=== PATIENT | female | born 1960 | race Caucasian/White ===

== ENCOUNTER 2016-10-03 05:56 | Emergency (ER) | payer BC ==
[~2016-10-03] VITALS: Ht 157.5 cm; Wt 91.0 kg
[~2016-10-03 05:56] MED LIST: ALBU18002 INH; ATV5 PO; BUPRTAB51 PO; CHOL2000 PO; FLUO10CA48 PO; HYDR25CA PO; LEVO75TA5 PO; LISI-787 PO; MELA1TAB5 PO
[2016-10-03 06:03] VITALS: TEMP 36.9; Ht 157.5 cm; Wt 91.0 kg
[2016-10-03] MEDS ORDERED: ONDANSETRON INJ 2 MG/ML 2 ML VIAL IV STA (06:15)
[2016-10-03] MEDS ORDERED: MoRPHine SULFATE 4 MG/ML 1 ML CARP\\VIAL IV STA (06:15)
--- NOTE | 2016-10-03 06:27 | EMERGENCY ROOM VISIT NOTE ---
History Report prepared by Nuha: Milena Lopez Under the Supervision of: Dr. Sarita Green D.O. First contact with patient: 06:05 Chief Complaint: CHEST PAIN Stated Complaint: CHEST PAIN Nursing Triage Summary: Mid Chest pain radiates under bilateral breasts since 0230 History of Present Illness The patient is a 56 year old female who presents to the Emergency Room with complaints of persistent, worsening chest pain that began around 0230 this morning. She currently rates her discomfort as a 10/10 in severity. The patient states that this morning she woke up with an uncomfortable feeling in her chest, noting that her pain has been worsening. The patient states that her pain radiates from under her right breast to the other side of her chest. She denies ever having pain like this in the past. The patient notes a personal and family history of hypertension, but denies a personal or family history of heart disease. She states that as she drove to the emergency department today she felt nauseous, but denies any shortness of breath or abdominal pain. Source of History: patient Onset: 0230 this morning Position: chest Symptom Intensity: 10/10 Timing: worsening Associated Symptoms: + nausea, No SOB, No abdominal pain Review of Systems See HPI for pertinent positives & negatives. A total of 10 systems reviewed and were otherwise negative. Past Medical & Surgical Medical Problems: (1) Hypertension (2) Spondylolisthesis Surgical Problems: (1) H/O tubal ligation Family History Cancer Gallbladder disease Hypertension Kidney stones Social History Smoking Status: Never Smoker Marital Status: Housing Status: lives with significant other Occupation Status: employed Current/Historical Medications Scheduled Bupropion (Wellbutrin-Xl), 300 MG PO DAILY Cholecalciferol (Vitamin D3), 1 CAP PO DAILY Levothyroxine Sodium (Levothyroxine Sodium), 75 MCG PO DAILY Lisinopril/Hctz (Zestoretic 20MG/12.5MG), 1 TAB PO DAILYBB Sennosides-Docusate Sodium (Stool Softener), 1 TAB PO DAILY Scheduled PRN Albuterol Sulfate (Proair Respiclick), 2 PUFF INH UD PRN for bronchitis Hydroxyzine Pamoate (Vistaril), 1 CAP PO HS PRN for Sleep Melatonin (Kp Melatonin), 3 MG PO HS PRN for Sleep Allergies Coded Allergies: Codeine (Verified Allergy, Unknown, unk, 10/03/16) Physical Exam Vital Signs Date Time Temp Pulse Resp B/P Pulse Ox O2 Delivery O2 Flow Rate FiO2 10/03/16 07:41 61 16 137/89 92 Room Air 10/03/16 06:34 68 16 152/95 95 Room Air 10/03/16 06:06 59 10/03/16 06:05 Room Air 10/03/16 06:05 Room Air 10/03/16 06:03 36.9 62 16 192/97 96 Room Air Physical Exam HEENT: Head - normocephalic and atraumatic Pupils are equal, round, and reactive to light. Extraocular eye muscles are intact, and sclera are anicteric. Nose - moist nasal mucosa without discharge. Mouth - moist buccal mucosa. Oropharynx is nonerythematous and there is no tonsillar exudate or edema noted. Neck: Supple; no JVD, nuchal rigidity, cervical lymphadenopathy. Heart: Tachycardic rate and regular rhythm. There is a normal S1 and S2 with no murmurs, clicks, or gallops appreciated. Lungs: Clear to auscultation bilaterally with no wheezes, rales, or rhonchi. Abdomen: Pain with palpation over the xiphoid process and right and left upper quadrants. Soft, nondistended, with good bowel sounds. There are no palpable pulsatile masses or hepatosplenomegaly. There is no guarding, rigidity, or rebound noted. Extremities: No evidence of cyanosis, clubbing, or edema. There are easily palpable peripheral pulses. Skin: Pale, warm and dry with good turgor and no rashes. Medical Decision & Procedures ER Provider Diagnostic Interpretation: CT results as stated below per my review and radiologist interpretation: TA Chest: No evidence of aortic aneurysm or dissection. No evidence of PE. Lungs are clear. No pleural effusions. No adenopathy. Heart size is normal. Left renal hypodensity, partially imaged, likely a cyst. Radiologist: Heriberto Prado MD Study ready at 0602 and initial results transmitted at 0788 Laboratory Results 10/03/16 06:13 10/03/16 06:13 Test 10/03/16 06:13 10/03/16 06:18 Red Blood Count 4.72 M/uL (4.2-5.4) Mean Corpuscular Volume 89.4 fL (80-100) Mean Corpuscular Hemoglobin 31.1 pg (25-34) Mean Corpuscular Hemoglobin Concent 34.8 g/dl (32-36) RDW Standard Deviation 44.5 fL (36.4-46.3) RDW Coefficient of Variation 13.5 % (11.5-14.5) Mean Platelet Volume 9.8 fL (7.4-10.4) Prothrombin Time 10.7 SECONDS (9.0-12.0) Prothromb Time International Ratio 1.0 (0.9-1.1) Activated Partial Thromboplast Time 27.4 SECONDS (21.0-31.0) Partial Thromboplastin Ratio 1.1 Est Creatinine Clear Calc Drug Dose 58.5 ml/min Estimated GFR () 64.1 Estimated GFR (Non- 55.3 BUN/Creatinine Ratio 17.0 (10-20) Calcium Level 10.0 mg/dl (8.5-10.1) Total Bilirubin 0.2 mg/dl (0.2-1) Direct Bilirubin < 0.1 mg/dl (0-0.2) Aspartate Amino Transf (AST/SGOT) 17 U/L (15-37) Alanine Aminotransferase (ALT/SGPT) 27 U/L (12-78) Alkaline Phosphatase 99 U/L (45-117) Total Creatine Kinase 70 U/L (26-192) Creatine Kinase MB < 0.5 ng/ml (0.5-3.6) Creatine Kinase MB Ratio (0-3.0) Troponin I < 0.015 ng/ml (0-0.045) Total Protein 7.6 gm/dl (6.4-8.2) Albumin 3.7 gm/dl (3.4-5.0) Lipase 384 U/L (73-393) Bedside Hemoglobin 15.0 g/dl (12.0-16.0) Bedside Hematocrit 44 % (37-47) Bedside Sodium 140 mEq/L (135-144) Bedside Potassium 4.0 mEq/L (3.3-5.0) Bedside Chloride 101 mEq/L (101-112) Bedside Total CO2 25 mEq/l (24-31) Anion Gap 19.0 mmol/L (16-25) Bedside Blood Urea Nitrogen 21 mg/dl (7-18) Bedside Creatinine 1.0 mg/dl (0.6-1.3) Bedside Glucose (other) 121 mg/dl (70-99) Bedside Ionized Calcium (Flavio) 1.27 mmol/l (1.12-1.32) Laboratory results per my review. Medications Administered Medications (Trade) Dose Ordered Sig/Lakhwinder Route Start Time Stop Time Status Last Admin Dose Admin Morphine Sulfate (MoRPHine SULFATE INJ) 4 mg NOW STAT IV 10/03/16 06:15 10/03/16 06:16 DC 10/03/16 06:41 4 MG Ondansetron HCl (Zofran Inj) 4 mg NOW STAT IV 10/03/16 06:15 10/03/16 06:16 DC 10/03/16 06:32 4 MG Procedure The patient was treated with Zofran Inj 4 mg IV, Morphine Sulfate 4 mg IV. ECG Indication: abdominal pain Rate (beats per minute): 61 Rhythm: normal sinus Findings: no acute ischemic change, no ectopy ED Course 0607: Past medical records reviewed. The patient was evaluated in room A12B. A complete history and physical exam was performed. An IV lock was initiated and labs are drawn as above. A i-STAT was obtained. She'll twelve-lead EKG which was unremarkable. 0615: Ordered Zofran Inj 4 mg IV, Morphine Sulfate 4 mg IV. Patient went for CT scan of the chest to rule out aortic dissection. 0713: I reevaluated the patient and she is feeling much better. Vital signs are stable. 0734: I reevaluated the patient and she feels much better and drinking water with no problem. I reexamined the patient's abdomen at this time and she had no reproducible tenderness. I discussed all the exam findings with her and I discussed the treatment plan. She verbalized complete understanding and agreement. She is ready to go home. Medical Decision The patient is a 56 year old female who presents to the ED with chest pain. Differential diagnosis includes aortic dissection, pancreatitis, acute coronary syndrome, cholecystitis, GERD. Lab interpretation: white count is 11.2, stable H&H, normal renal function, glucose 121, LFTs and lipase are normal, normal coagulation studies. The patient has moderate lower chest pain and epigastric pain. It's been ongoing for 2-3 hours. He has become more severe. CT scan of the chest revealed no evidence of an acute aortic dissection. I did consider the possibility of cholecystitis or pancreatitis. LFTs and lipase were normal. At the time of discharge, the patient was asymptomatic. She had received some IV morphine for pain. I did reexamine her abdomen prior to discharge and she had no reproducible discomfort at that time. I have asked the patient to rest and take a bland diet. If symptoms worsen or she develops a fever or vomiting, she should return here to the ER. Impression Primary Impression: Epigastric pain Scribe Attestation The scribe's documentation has been prepared under my direction and personally reviewed by me in its entirety. I confirm that the note above accurately reflects all work, treatment, procedures, and medical decision making performed by me. Departure Information Dispostion Home / Self-Care Referrals Szuanna Steward M.D. (PCP) Forms HOME CARE DOCUMENTATION FORM, IMPORTANT VISIT INFORMATION Patient Instructions ED Epigastric Pain [facility] Additional Instructions Rest. Take a bland diet Return to the ER if you develop worsening pain, vomiting, fever. You may need an ultrasound of your gallbladder.
[2016-10-03 06:28] LABS: ISTAT IONIZED CALCIUM 1.27 mmol/l (1.12-1.32)
[2016-10-03] MEDS ORDERED: OPTIRAY 320 IV PRN (06:30)
[2016-10-03 06:34] LABS: HEMATOCRIT 42.2 % (37-47); MEAN CELL VOLUME 89.4 fL (80-100); MEAN CORPUSCULAR HEMOGLOBIN 31.1 pg (25-34); MEAN CORPUSCULAR HGB CONC 34.8 g/dl (32-36); MEAN PLATELET VOLUME 9.8 fL (7.4-10.4); PLATELET COUNT 317 K/uL (130-400); RED BLOOD COUNT 4.72 M/uL (4.2-5.4); WHITE BLOOD COUNT 11.28 K/uL (4.8-10.8)
[2016-10-03] MEDS ORDERED: SENNTAB23 PO (06:41)
[2016-10-03 06:45] LABS: PARTIAL THROMBOPLASTIN RATIO 1.1; PROTHROMBIN TIME (PATIENT) 10.7 SECONDS (9.0-12.0)
[2016-10-03 06:53] LABS: ALT/SGPT 27 U/L (12-78); AST/SGOT 17 U/L (15-37); BLOOD UREA NITROGEN 19 mg/dl (7-18); CARBON DIOXIDE 29 mmol/L (21-32); CHLORIDE 103 mmol/L (98-107); GLUCOSE 112 mg/dl (70-99); POTASSIUM 3.9 mmol/L (3.5-5.1); SODIUM 141 mmol/L (136-145)
[2016-10-03 06:59] LABS: ALKALINE PHOSPHATASE 99 U/L (45-117)
--- NOTE | 2016-10-03 07:43 | DIAGNOSTIC IMAGING REPORT ---
CHEST COMBO ANGIO DISSECTION CLINICAL HISTORY: Chest pain. Evaluate for aortic dissection. COMPARISON STUDY: Chest radiograph June 15, 2015. TECHNIQUE: Enhanced and arterial phase imaging of the chest was performed. Injection of 92 cc Optiray 320 IV was uneventful. Sagittal and coronal reconstructions were viewed as well as maximal intensity projections on an independent 3-D workstation. FINDINGS: No intramural hematoma or dissection within the thoracic aorta is present. The caliber of the thoracic aorta is normal. The size of the heart is at the upper limits of normal. There is no pericardial effusion. There are no enlarged thoracic lymph nodes. Central airways are patent. A 5 mm circumscribed left upper lobe nodule is likely benign. There is no consolidation. Bony thorax is unremarkable. A left renal lesion likely reflects a cyst. This is partially imaged. This was shown to represent a cyst on CT of August 23, 2011. IMPRESSION: 1. No aortic dissection. 2. No acute intrathoracic findings. Electronically signed by: Daniel Steward M.D. 10/03/2016 7:42 AM Dictated Date/Time: 10/03/2016 7:30 AM
[2016-10-03 08:55] VITALS: BP 130/93; PULSE 71; O2SAT 95
== END 2016-10-03 09:20 | disposition home or self-care (01) ==
LOC: C.EDB 05:57 → C.EDA 09:20
DX: R10.13 Epigastric pain (principal); I10 Essential (primary) hypertension; Z98.51 Tubal ligation status; Z80.9 Family history of malignant neoplasm, unspecified; Z82.49 Family history of ischemic heart disease and other diseases of the circulatory system; Z79.899 Other long term (current) drug therapy; Z88.5 Allergy status to narcotic agent

== ENCOUNTER → 2016-11-19 | Outpatient (CLI) | payer BC ==
[~2016-11-19] MED LIST changes: -ATV5 PO; -FLUO10CA48 PO; +SENNTAB23 PO
--- NOTE | 2016-11-20 15:18 | MAMMOGRAPHY REPORT ---
BILATERAL DIGITAL SCREENING MAMMOGRAM TOMOSYNTHESIS WITH CAD: 11/19/2016 CLINICAL HISTORY: Routine screening examination. TECHNIQUE: Breast tomosynthesis in addition to standard 2D mammography was performed. Current study was also evaluated with a Computer Aided Detection (CAD) system. COMPARISON: Comparison is made to exams dated: 11/04/2014 mammogram and 11/17/2015 mammogram - [facility]. BREAST COMPOSITION: The tissue of both breasts is almost entirely fatty. FINDINGS: No suspicious mass, architectural distortion or cluster of microcalcifications is seen. IMPRESSION: ACR BI-RADS CATEGORY 1: NEGATIVE There is no mammographic evidence of malignancy. A 1 year screening mammogram is recommended. The p atient will receive written notification of the results. Approximately 10% of breast cancers are not detected with mammography. A negative mammographic repor t should not delay biopsy if a clinically suggestive mass is present. Bella hernandez/grace:11/19/2016 16:40:42 Ferry Hand: Rosa Isela ALFRED(R)(Cathy), [facility] letter sent: Normal 1/2 BI-RADS Code: ACR BI-RADS Category 1: Negative
== END | disposition home or self-care (01) ==
LOC: C.MAMM 14:17
PROVIDERS: ATTEND Obstetrics & Gynecology
DX: Z12.31 Encounter for screening mammogram for malignant neoplasm of breast (principal)

== ENCOUNTER → 2016-11-28 | Outpatient (CLI) | payer BC ==
[2016-11-28 17:02] LABS: URINE APPEARANCE CLEAR (CLEAR); URINE BILIRUBIN NEG (NEG); URINE COLOR YELLOW; URINE NITRITE NEG (NEG); URINE PH 5.5 (4.5-7.5); URINE SPECIFIC GRAVITY 1.022 (1.000-1.030); UROBILINOGEN NEG (NEG)
[2016-11-28 17:04] LABS: MANUAL MICROSCOPIC REQUIRED? NO; REVIEW REQ? NO
== END | disposition home or self-care (01) ==
LOC: C.LABSPEC 16:29
PROVIDERS: ATTEND Obstetrics & Gynecology
DX: R39.15 Urgency of urination (principal)

== ENCOUNTER → 2017-07-30 | Outpatient (CLI) | payer BC | END | disposition home or self-care (01) | LOC: C.LABSPEC 16:55 | PROVIDERS: ATTEND Urology | DX: R39.9 Unspecified symptoms and signs involving the genitourinary system (principal) ==

== ENCOUNTER → 2017-11-20 | Outpatient (CLI) | payer OTHER ==
--- NOTE | 2017-11-21 07:56 | MAMMOGRAPHY REPORT ---
BILATERAL DIGITAL SCREENING MAMMOGRAM TOMOSYNTHESIS WITH CAD: 11/20/2017 CLINICAL HISTORY: Routine screening. Patient has no complaints. TECHNIQUE: Breast tomosynthesis in addition to standard 2D mammography was performed. Current study was also evaluated with a Computer Aided Detection (CAD) system. COMPARISON: Comparison is made to exams dated: 11/17/2015 mammogram, 11/04/2014 mammogram, and 7 mammogram - [facility]. BREAST COMPOSITION: The tissue of both breasts is almost entirely fatty. FINDINGS: No suspicious masses, calcifications, or areas of architectural distortion are noted in ei ther breast. There has been no significant interval change compared to prior exams. IMPRESSION: ACR BI-RADS CATEGORY 1: NEGATIVE There is no mammographic evidence of malignancy. A 1 year screening mammogram is recommended. The pa tient will receive written notification of the results. Approximately 10% of breast cancers are not detected with mammography. A negative mammographic report should not delay biopsy if a clinically suggestive mass is present. Haylee Jaime M.D. ah/:11/20/2017 14:44:37 [employer] Associate: Chet Durand M, [facility] letter sent: Normal 1/2 BI-RADS Code: ACR BI-RADS Category 1: Negative
== END | disposition home or self-care (01) ==
LOC: C.MAMM 14:21
PROVIDERS: ATTEND Obstetrics & Gynecology
DX: Z12.31 Encounter for screening mammogram for malignant neoplasm of breast (principal)

== ENCOUNTER → 2017-11-21 | Outpatient (CLI) | payer OTHER ==
--- NOTE | 2017-11-21 14:54 | DIAGNOSTIC IMAGING REPORT ---
GALLBLADDER-ABD LIMITED HISTORY: 57 years-old Female ABDOMINAL PAIN acute right upper quadrant abdominal pain COMPARISON: CT abdomen and pelvis 08/23/2011 TECHNIQUE: Multiple real-time sonography images of the abdominal right upper quadrant were obtained assessing grayscale appearance and color flow FINDINGS: Pancreas is not well seen secondary to patient body habitus and obscuring bowel gas. The liver appears unremarkable without intrahepatic biliary ductal dilation or focal hepatic mass lesions. Gallbladder is contracted without wall thickening, or pericholecystic fluid collections. Layering echogenicities with posterior acoustic shadowing within the gallbladder lumen compatible with cholelithiasis. Common bile duct is normal, 4 mm. The imaged right kidney is unremarkable without renal calculi or hydronephrosis. IMPRESSION: 1. Contracted gallbladder with cholelithiasis. No sonographic evidence of acute cholecystitis. 2. No biliary ductal dilation. The above report was generated using voice recognition software. It may contain grammatical, syntax or spelling errors. Electronically signed by: Jesus Alberto Shi M.D. 11/21/2017 2:53 PM Dictated Date/Time: 11/21/2017 2:47 PM
== END | disposition home or self-care (01) ==
LOC: C.ULTRBC 14:14
PROVIDERS: ATTEND Physician Assistant Medical
DX: R10.11 Right upper quadrant pain (principal)

== ENCOUNTER → 2017-12-09 | Day surgery (SDC) | payer OTHER ==
[2017-12-04 08:21] VITALS: Ht 154.9 cm; Wt 90.6 kg
--- NOTE | 2017-12-04 08:47 | PAT Medication Instructions ---
Service Date Dec 04, 2017. Current Home Medication List Albuterol Sulfate (Proair Respiclick), 2 PUFF INH UD PRN for bronchitis Bupropion (Wellbutrin-Xl), 300 MG PO QAM Cholecalciferol (Vitamin D3), 1 CAP PO QAM Hydroxyzine Pamoate (Vistaril), 1 CAP PO HS PRN for Sleep Lactulose (Chronulac), 15 ML PO QAM Levothyroxine Sodium (Levothyroxine Sodium), 75 MCG PO QAM Lisinopril/Hctz (Zestoretic 20MG/12.5MG), 1 TAB PO QAM Melatonin (Kp Melatonin), 3 MG PO HS PRN for Sleep Multivitamin (Multivitamin), 1 TAB PO NOON [Oxybutynin], 15 MG PO QAM Medication Instructions For Your Scheduled Surgery - Hold the following medications the morning of surgery: Cholecalciferol (Vitamin D3), 1 CAP PO QAM Lactulose (Chronulac), 15 ML PO QAM Lisinopril/Hctz (Zestoretic 20MG/12.5MG), 1 TAB PO QAM [Oxybutynin], 15 MG PO QAM - Take the following medications the morning of surgery with a sip of water: Albuterol Sulfate (Proair Respiclick), 2 PUFF INH UD PRN for bronchitis (if needed) Bupropion (Wellbutrin-Xl), 300 MG PO QAM Levothyroxine Sodium (Levothyroxine Sodium), 75 MCG PO QAM - Take the following medications as scheduled the night before surgery: Albuterol Sulfate (Proair Respiclick), 2 PUFF INH UD PRN for bronchitis (if needed) Hydroxyzine Pamoate (Vistaril), 1 CAP PO HS PRN for Sleep (if needed) Melatonin (Kp Melatonin), 3 MG PO HS PRN for Sleep (if needed) Multivitamin (Multivitamin), 1 TAB PO NOON If you have any questions please call us at [phone] or [phone] or [phone]
--- NOTE | 2017-12-04 10:17 | DIAGNOSTIC IMAGING REPORT ---
TWO VIEW CHEST CLINICAL HISTORY: Preoperative examination. FINDINGS: PA and lateral chest radiographs are compared to study dated 06/15/2015. The cardiomediastinal silhouette is unremarkable. There is mild elevation of the right hemidiaphragm. The lungs and pleural spaces are clear. There is no pneumothorax. The bony thorax appears intact. IMPRESSION: No active disease in the chest. Electronically signed by: Drew Culp M.D. 12/04/2017 10:16 AM Dictated Date/Time: 12/04/2017 10:16 AM
[2017-12-04 10:47] LABS: BASO % 0.6 %; BASO ABS # 0.04 K/uL (0-0.2); EOS % 4.1 %; EOS ABS # 0.29 K/uL (0-0.5); HEMATOCRIT 43.7 % (37-47); HEMOGLOBIN 14.7 g/dL (12.0-16.0); IG# 0.01 K/uL (0.00-0.02); LYMPH % 35.1 %; MEAN CELL VOLUME 93.2 fL (80-100); MEAN CORPUSCULAR HEMOGLOBIN 31.3 pg (25-34); MEAN CORPUSCULAR HGB CONC 33.6 g/dl (32-36); MEAN PLATELET VOLUME 9.5 fL (7.4-10.4); MONO % 10.5 %; MONO ABS # 0.75 K/uL (0.11-0.59); NEUT % 49.6 %; NEUT ABS # 3.54 K/uL (1.4-6.5); PLATELET COUNT 292 K/uL (130-400); RED CELL DISTRIBUTION WIDTH SD 47.4 fL (36.4-46.3); WHITE BLOOD COUNT 7.13 K/uL (4.8-10.8)
[2017-12-04 11:13] LABS: ALBUMIN 3.6 gm/dl (3.4-5.0); ALKALINE PHOSPHATASE 98 U/L (45-117); ALT/SGPT 32 U/L (12-78); AST/SGOT 23 U/L (15-37); BLOOD UREA NITROGEN 22 mg/dl (7-18); CALCIUM 9.2 mg/dl (8.5-10.1); CARBON DIOXIDE 28 mmol/L (21-32); CREATININE 1.21 mg/dl (0.60-1.20); GLUCOSE 94 mg/dl (70-99); SODIUM 137 mmol/L (136-145); TOTAL PROTEIN 7.4 gm/dl (6.4-8.2)
[~2017-12-09] VITALS: Ht 154.9 cm; Wt 90.6 kg
[~2017-12-09] MED LIST changes: +ATROPINE SULFATE 0.1 MG/ML 5ML SYR IV PRN; +BUPIVACAINE 0.5 % 5 MG/1 ML MPF 30ML VIAL ONE; +CEFOXITIN IV 2,000 MG in DEXTROSE 5% 50ML 50 ML IV SCH; +DEXAMETHASONE SOD INJ 4 MG/ML VIAL ONE; +EpHEDrine SULFATE 50MG/5ML SYR ONE; +EpHEDrine SULFATE INJ 50 MG/ML AMP IV PRN; +FENTANYL CITRATE INJ 50 MCG/1 ML 2 ML VIAL ONE; +GLYCOPYRROLATE INJ 0.2 MG/ML VIAL ONE; +HYDR-5688 PO; +HYDROCODONE/ACETAMIN 5/325MG TAB PO PRN; +KETOROLAC TROMETHAMINE 30 MG/ML VIAL ONE; +LACT10SO17 PO; +LACTATED RINGER'S 1000ML 1,000 ML IV SCH; +LARYING-O-JET KIT (LTA) ONE; +LIDOCAINE HCL 2% 2 ML VIAL (20MG/ML) ONE; +MIDAZOLAM HCL 1 MG/ML 2ML VIAL ONE; +MULT-506 PO; +NEOSTIGMINE METHYLSULFATE 5 MG/5 ML SYR ONE; +ONDANSETRON INJ 2 MG/ML 2 ML VIAL IV PRN; +ONDANSETRON INJ 2 MG/ML 2 ML VIAL ONE; +OXYBUTYNIN PO; +OXYC-57 PO; +PROMETHAZINE HCL INJ 6.25 MG in SODIUM CHLORIDE 0.9% 50ML 50 ML IV PRN; +PROPOFOL IV EMULSION 10 MG/ML 20 ML VIAL ONE; +ROCURONIUM BROMIDE 10 MG/ML 5 ML VIAL ONE; -SENNTAB23 PO; +SODIUM CHLORIDE 0.9% 1000ML 1,000 ML IV SCH
--- NOTE | 2017-12-09 06:09 | History & Physical Bridge Note ---
H&P Re-Evaluation Bridge Note: I have examined the patient, reviewed the History & Physical and in the interval since the performance of the History & Physical I have noted the following changes of clinical significance: No changes noted
--- NOTE | 2017-12-09 08:58 | Discharge Instructions ---
Discharge Instructions Date of Service Dec 09, 2017. Admission Reason for Admission: Cholelithiasis Discharge Discharge Diagnosis / Problem: Cholelithiasis Discharge Goals Goal(s): Decrease discomfort, Improve function Activity Recommendations Activity Limitations: as noted below Lifting Limitations: no more than 10 pounds Exercise/Sports Limitations: until after follow-up appointment May Resume Sexual Activity: after follow-up appointment Shower/Bathe: tomorrow Driving or Machine Use: resume 1 day after discharge . Instructions / Follow-Up Instructions / Follow-Up You have surgical glue, Dermabond, over your incisions. You may shower tomorrow , but please do not soak or scrub your incisions. Please follow-up with Dr. Ogden in the General Surgery Clinic in 1-2 weeks. Please call the office at [phone] to make an appointment if you do not have one already. Please call the General Surgery Clinic at [phone] with any questions or concerns. Current Hospital Diet Patient's current hospital diet: Discharge Diet Recommended Diet: Regular Diet Procedures Procedures Performed: Laparoscopic Cholecystectomy Pending Studies Studies pending at discharge: yes List of pending studies: Pathology report. Medical Emergencies . Who to Call and When: Medical Emergencies: If at any time you feel your situation is an emergency, please call 911 immediately. . Non-Emergent Contact Non-Emergency issues call your: Primary Care Provider, Surgeon Call Non-Emergent contact if: temperature is above 101.5, your pain is not controlled, wound has increased drainage, wound has increased redness . "Provider Documentation" section prepared by Estefania Shelton. . [place] Drug Monitoring Program Search Results: patient reviewed within database, no issues identified
--- NOTE | 2017-12-09 09:18 | [facility] Operative Report ---
Operative Report Operative Date Dec 09, 2017. Pre-Operative Diagnosis Symptomatic cholelithiasis Post-Operative Diagnosis Symptomatic cholelithiasis with chronic cholecystitis Procedure(s) Performed Laparoscopic cholecystectomy Surgeon Dr. Ogden Front End Driver Surgeon(s) Niki Suarez PA-C Estimated Blood Loss 7 ML Findings Omentum adhesed the liver taken down with cautery. Chronic inflammation of the gallbladder apparent. Window of safety obtained, cystic duct and artery doubly clipped and divided. Good hemostasis. Specimens Permanent Specimen: A: Gallbladder Drains None Anesthesia GETA Complication(s) None Disposition Recovery Room / PACU Indications 57-year-old female with symptomatic cholelithiasis, plan for laparoscopic cholecystectomy with possible cholangiogram. The risks of the procedure were discussed, all questions were answered, and the patient agreed to proceed with surgery as planned. Description of Procedure The patient was properly identified, consented, and taken to the operating room where she was placed in the supine position. General endotracheal anesthesia was induced. SCDs and a safety belt were placed. Preoperative antibiotics were administered. The patient's abdomen was prepped and draped in the standard sterile fashion. A surgical timeout was performed and all parties were in agreement that this was the correct patient and procedure to be performed and we continued as planned. An incision was made superior and to the left of the umbilicus overlying the rectus muscle and the Veress needle was inserted. Saline drop test confirmed entry into the peritoneum. The abdomen was insufflated with carbon dioxide which the patient tolerated without incident. The abdomen was then entered using the Optiview technique and a 5 mm trocar. The laparoscope was inserted and no damage from initial trocar or Veress needle placement was noted, no gross abnormalities were noted within the 4 quadrants of the abdomen. An 11 mm port was placed in the subxiphoid position and two 5 mm ports were then placed in the right subcostal position. The patient was placed in reverse Trendelenburg position and rotated towards the left. The omentum was adhesed to the anterior abdominal wall this was taken down bluntly. The omentum was also adhesed to the liver edge and this was taken down with electrocautery. The dome of the gallbladder was retracted towards the left upper quadrant and the infundibulum was retracted toward the right lower quadrant revealing Calot's triangle. Peritoneal attachments were taken down with electrocautery and blunt dissection. The gallbladder was chronically inflamed. The cystic duct and artery were circumferentially dissected. A window of safety was obtained showing the cystic duct entering the gallbladder with no aberrant structures noted. The cystic duct and artery were doubly clipped and divided. The gallbladder was then lifted off the gallbladder fossa with electrocautery. There is small amount of bile spilled during the case, but there was no stone spilled. The gallbladder was placed in an Endo Catch bag and removed through the subxiphoid port site. The right upper quadrant was irrigated and hemostasis was found to be good. 5 mm trochars were removed under direct visualization and the abdomen was allowed to collapse. The subxiphoid port site fascia was not closed. The wound was irrigated, and the skin of all ports was closed with 4-0 Monocryl subcuticular sutures. Dermabond was placed over the wounds. The patient was extubated in the operating room and taken to the PACU where she recovered without apparent incident. All sponge, instrument and needle counts were correct at the conclusion of the procedure. The patient tolerated the procedure well. The physician's assistant baseball coach was present and scrubbed for the entire to the case. He was essential in positioning the patient, prepping and draping, retraction and exposure, driving the laparoscope, removal of the gallbladder, closure of the incisions, and placement of the dressings. I attest to the content of the Intraoperative Record and any orders documented therein. Any exceptions are noted below.
[2017-12-09] MEDS: FENTANYL CITRATE INJ 50 MCG/1 ML 2 ML VIAL IV PRN ×2 (09:47→09:56)
--- NOTE | 2017-12-09 10:10 | Anesthesiology Progress Note ---
Anesthesia Post Op Note Date & Time Dec 09, 2017 at 10:10 Vital Signs Pain Intensity: 3 Vital Signs Past 12 Hours Date Time Temp Pulse Resp B/P (MAP) Pulse Ox O2 Delivery O2 Flow Rate FiO2 12/09/17 09:55 78 18 135/88 94 Room Air 12/09/17 09:45 76 18 147/90 97 Oxymask 10 12/09/17 09:35 77 18 150/83 95 Oxymask 10 12/09/17 09:27 36.5 88 18 147/88 97 Oxymask 10 Notes Mental Status: alert / awake / arousable, participated in evaluation Pt Amnestic to Procedure: Yes Nausea / Vomiting: adequately controlled Pain: adequately controlled Airway Patency, RR, SpO2: stable & adequate BP & HR: stable & adequate Hydration State: stable & adequate Anesthetic Complications: no major complications apparent
[2017-12-09 10:25] VITALS: BP 136/74; PULSE 76; TEMP 36.3; O2SAT 96
[2017-12-09 10:55] VITALS: BP 124/69; PULSE 78; TEMP 36.3; O2SAT 96
[2017-12-09 11:25] VITALS: BP 114/70; PULSE 77; TEMP 36.3; O2SAT 95
== END | disposition home or self-care (01) ==
LOC: C.ACU 05:09
PROVIDERS: ATTEND Surgery
DX: K80.10 Calculus of gallbladder with chronic cholecystitis without obstruction (principal); J45.909 Unspecified asthma, uncomplicated; I10 Essential (primary) hypertension; K21.9 Gastro-esophageal reflux disease without esophagitis; E03.9 Hypothyroidism, unspecified; E55.9 Vitamin D deficiency, unspecified; E66.01 Morbid (severe) obesity due to excess calories; Z68.38 Body mass index [BMI] 38.0-38.9, adult; Z88.5 Allergy status to narcotic agent

== ENCOUNTER 2021-09-18 05:15 | Inpatient (IN) ==
--- NOTE | 2021-08-03 14:50 | PAT Medication Instructions ---
Medication Instructions Date of Service August 03, 2021 Home Medications Medication Instructions Recorded albuterol sulfate 90 mcg/actuation 1 inh INHALATION QID PRN #8.5 g 04/28/20 aerosol inhaler (ProAir HFA) levothyroxine 50 mcg tablet 50 mcg PO DAILY #90 tab 08/23/20 (Synthroid) omeprazole 20 mg capsule,delayed See Rx Instructions .ROUTE 08/23/20 release .COMPLEX #90 cap hydroxyzine HCl 25 mg tablet 25 mg PO HS PRN #30 tab 04/25/21 oxybutynin chloride 10 mg 10 mg PO QAM #90 tab 05/04/21 tablet,extended release 24 hr cholecalciferol (vitamin D3) 50 mcg (2,000 unit) capsule (Vitamin D3) 2,000 unit PO QAM melatonin 5 mg tablet 5 mg PO HS PRN albuterol sulfate 90 mcg/actuation aerosol inhaler (ProAir HFA) 1 inh INHALATION QID PRN levothyroxine 50 mcg tablet (Synthroid) 50 mcg PO DAILY omeprazole 20 mg capsule,delayed release PO DAILY hydroxyzine HCl 25 mg tablet 25 mg PO HS PRN oxybutynin chloride 10 mg tablet,extended release 24 hr 10 mg PO QAM bupropion HCl 300 mg 24 hr tablet, extended release 300 mg PO QAM fluoxetine 10 mg capsule 10 mg PO QAM fluoxetine 20 mg capsule 20 mg PO QAM linaclotide 145 mcg capsule (Linzess) 145 mcg PO QAM DO NOT take the morning of surgery cholecalciferol (vitamin D3) 50 mcg (2,000 unit) capsule (Vitamin D3) 2,000 unit PO QAM oxybutynin chloride 10 mg tablet,extended release 24 hr 10 mg PO QAM linaclotide 145 mcg capsule (Linzess) 145 mcg PO QAM Take morning of surgery With a small sip of water, OTHERWISE NOTHING TO EAT OR DRINK AFTER MIDNIGHT: albuterol sulfate 90 mcg/actuation aerosol inhaler (ProAir HFA) 1 inh INHALATION QID PRN(use if needed; please bring with you to hospital day of surgery if possible). levothyroxine 50 mcg tablet (Synthroid) 50 mcg PO DAILY omeprazole 20 mg capsule,delayed release PO DAILY bupropion HCl 300 mg 24 hr tablet, extended release 300 mg PO QAM fluoxetine 10 mg capsule 10 mg PO QAM fluoxetine 20 mg capsule 20 mg PO QAM Take evening before surgery melatonin 5 mg tablet 5 mg PO HS PRN albuterol sulfate 90 mcg/actuation aerosol inhaler (ProAir HFA) 1 inh INHALATION QID PRN(if needed) hydroxyzine HCl 25 mg tablet 25 mg PO HS PRN Other Notes If you have any questions please call us at [phone] or [phone] or [phone] or [phone]
--- NOTE | 2021-08-15 13:07 | Anesthesiology Consultation ---
Date of Service August 15, 2021 Assessment & Plan (1) Encounter for pre-operative examination: Chart Review Chart Review: Acceptable Risk for Surgery (pending surgeon ordered PCP clearance and preop Covid testing results ) and Patient seen in Pre Admission Testing Awaiting surgeon ordered PCP clearance scheduled 08/25/21 Per PAT appt on 08/15/21, patient denies any recent travel or large group activities. No known Covid positive exposures or Covid related symptoms. No known Covid infection in the past 90 days. Pt is vaccinated for Covid. Preop Covid testing scheduled 08/25/21 = will await results. Educated on importance of self quarantining, social distancing and wearing mask in public for the patient one week prior to surgery and after Covid testing done Teaching & Discussion Pre-Anesthesia Teaching/Discussion Notes: Instructed NPO after midnight before surgery,except medications with 15 cc of water. Medication instructions provided according to the PAT guidelines. History Surgery Operation Date: 08/29/21 07:45 Proposed Procedures p L3-L5 Revision Decompression and Fusion, Spinal Cord Monitoring - Marcello Carnes DO Height/Weight Height: 5 ft 2 in Weight: 93 kg Allergies Allergy/AdvReac Type Severity Reaction Status Date / Time codeine AdvReac Unknown VERY Verified 08/02/21 15:41 SLEEPY-SEDATED & syncope Medications Home Medications Medication Instructions Recorded Confirmed Last Taken cholecalciferol (vitamin D3) 50 2,000 unit PO QAM 12/24/18 08/02/21 12/24/18 mcg (2,000 unit) capsule (Vitamin D3) melatonin 5 mg tablet 5 mg PO HS PRN 12/24/18 08/02/21 12/22/18 albuterol sulfate 90 mcg/actuation 1 inh INHALATION QID PRN #8.5 g 04/28/20 08/02/21 Unknown aerosol inhaler (ProAir HFA) omeprazole 20 mg capsule,delayed See Rx Instructions .ROUTE 08/23/20 08/02/21 Unknown release .COMPLEX #90 cap hydroxyzine HCl 25 mg tablet 25 mg PO HS PRN #30 tab 04/25/21 08/02/21 Unknown oxybutynin chloride 10 mg 10 mg PO QAM #90 tab 05/04/21 08/02/21 Unknown tablet,extended release 24 hr bupropion HCl 300 mg 24 hr tablet, 300 mg PO QAM 08/02/21 08/02/21 Unknown extended release fluoxetine 10 mg capsule 10 mg PO QAM 08/02/21 08/02/21 Unknown fluoxetine 20 mg capsule 20 mg PO QAM 08/02/21 08/02/21 Unknown linaclotide 145 mcg capsule 145 mcg PO QAM 08/02/21 08/02/21 Unknown (Linzess) levothyroxine 50 mcg tablet 50 mcg PO DAILY #90 tab 08/14/21 Unknown (Synthroid) Past Medical History Medical History Anxiety Bronchitis USUALLY GETS 1 X A YR-INHALER PRN No current issues Chronic idiopathic constipation Chronic sinusitis, unspecified Stable Depression GERD (gastroesophageal reflux disease) Well controlled and stable Hyperlipidemia NO MEDS Hypothyroidism Overactive bladder Suspected 2018 novel coronavirus infection 06/2020 NOT TESTED AT TIME OF SYMPTOMS-SYMPTOMS OF FATIGUE, FEVER, CHEST TIGHTNESS-RECOVERED AT HOME-SYMPTOMS RESOLVED Exercise / Class Metabolic Activity II 4-5 Yardwork/Stairs/Walk up hill (one flight of stais - no chest pain or SOB ) Past Family History Family History Daughter Cervical cancer Metastatic Cervical Cancer Hypertension Multiple sclerosis Mother FH: colonic diverticulitis Crohn's disease Hypertension Father FH: colonic diverticulitis Crohn's disease Cancer Son Hypertension Brother Cancer Other Lung cancer Denies family history of Breast cancer Colorectal cancer Past Surgical History Surgical History H/O right knee surgery (~10/2019) meniscus repair History of anesthesia reaction SLOW TO WAKE UP History of bilateral tubal ligation History of cholecystectomy History of colonoscopy 2012 History of esophagogastroduodenoscopy (EGD) History of laminectomy LUMBAR-2013 History of tooth extraction Past Anesthesia History No Hx of Anesthesia Complications (with exception to slow to wake- just groggy- no reintubation or ICU stay ) and No Family Hx of Anesthesia Complications (with exception to mother - slow to wake and hypotension- was in 90s ) History of PONV No Hx of PONV and Hx of Motion Sickness Social History Smoking Status: Never smoker Do You Dip or Chew Tobacco: No Hx Alcohol Use: Yes Alcohol type: wine alcohol intake frequency: holidays/special occasions only Hx Substance Use: No substance use type: does not use Review of Systems Hx of post nasal drip in morning secondary to chronic sinus drainage Snoring - no witnessed apnea- no hx of sleep study Patient denies chest pain, shortness of breath, dyspnea on exertion, cough, wheezing, palpitations. No hx of seizures, stroke, MA.. No hx of blood clots or blood transfusions Physical Exam Vital Signs VITALS BP 131/82 P 94 TEMP 99.2 SP02 95% RESP 16 Constitutional no acute distress ENMT Mouth: no TMJ clicking Thyromental Distance: > or= 3.5 Finger Breadths (3.5) Mallampati Class: II Mouth / Teeth: 1. [place] to molar as well Neck + thick neck (mild ); neck extension not limited Respiratory normal respiratory effort; no respiratory distress Auscultation: lungs clear to auscultation bilaterally; no wheezes Cardiovascular Rate/Rhythm: regular rate and regular rhythm Heart Sounds: no murmur Vessels: no carotid bruit Musculoskeletal Spine: no pain with cervical ROM Extremities: extremities normal to inspection Psychiatric Orientation: alert Lab Results Anesthesia Preop Results Results Anesthesia Widget: WBC 6.24 K/uL (4.8-10.8) 08/15/21 Hgb 15.2 g/dL (12.0-16.0) 08/15/21 Hct 45.7 % (37-47) 08/15/21 Plt 310 K/uL (130-400) 08/15/21 Na 139 mmol/L (136-145) 08/15/21 K 3.9 mmol/L (3.5-5.1) 08/15/21 Cl 106 mmol/L (98-107) 08/15/21 CO2 28 mmol/L (21-32) 08/15/21 BUN 18 mg/dl (7-18) 08/15/21 Creat 1.06 mg/dl (0.6-1.2) 08/15/21 Glucose Level 99 mg/dl (70-99) 08/15/21 PT 10.2 Seconds (9.0-12.0) 08/15/21 PTT 29.6 Seconds (21.0-31.0) 08/15/21 INR 1.0 (0.9-1.1) 08/15/21 Urine Color Yellow 08/15/21 Urine Appearance Clear (Clear) 08/15/21 Urine pH 5.0 (4.5-7.5) 08/15/21 Urine Specific [place] 1.022 (1.000-1.030) 08/15/21 Urine Protein Negative (Negative) 08/15/21 Urine Glucose (UA) Negative (Negative) 08/15/21 Urine Ketones Negative (Negative) 08/15/21 Urine Blood Negative (Negative) 08/15/21 Urine Nitrite Negative (Negative) 08/15/21 Urine Bilirubin Negative (Negative) 08/15/21 Urine Urobilinogen Negative (Negative) 08/15/21 Urine Leukocyte Esterase Negative (Negative) 08/15/21 Blood Type A Positive 08/15/21 Antibody Screen NEGATIVE 08/15/21 Testing Electrocardiogram Date: 08/15/21 Findings: + NSR @ (78bpm) Poor R wave progression, consider anterior MA versus lead placement versus LVH. When compared to EKG from 10/27/2019no significant changes found per cardio. (Upon personal review of records- PRWP present since at least 2015) Chest X-Ray Date: 08/15/21 Findings: + NAD
[2021-09-18] MEDS ORDERED: LR 15ML/HR IV SCH (06:00)
[2021-09-18] MEDS ORDERED: ACETAMINOPHEN 500 MG TAB PO SCH (06:00)
[2021-09-18] MEDS ORDERED: CeleBREX 200 MG CAP PO SCH (06:00)
[2021-09-18] MEDS ORDERED: ceFAZolin 2000MG 2,000 MG/15 ML SYR IV SCH (06:00)
[2021-09-18] MEDS ORDERED: GABAPENTIN 600 MG DOSE PO SCH (06:00)
[2021-09-18] MEDS ORDERED: MIDAZOLAM HCL 1 MG/ML 2ML VIAL ONE (06:34)
[2021-09-18] MEDS ORDERED: HYDROmorphone INJ 2 MG/ML SYR/VIAL ONE (06:34)
[2021-09-18] MEDS ORDERED: SUGAMMADEX SODIUM 200 MG/2 ML VIAL IV ONE (06:41)
[2021-09-18] MEDS ORDERED: ALBUMIN HUMAN 5% 12.5 GM/250 ML VIAL IV ONE (06:41)
[2021-09-18] MEDS ORDERED: BUPIVACAINE 0.5 % 5 MG/1 ML MPF 30ML VIAL ONE (07:05)
[2021-09-18] MEDS ORDERED: EPINEPHrine INJ 1 MG/ML AMP ONE (07:05)
[2021-09-18] MEDS ORDERED: ceFAZolin 330 MG/ML 1 GM VIAL ONE (07:05)
--- NOTE | 2021-09-18 07:37 | History & Physical Bridge Note ---
Date of Service September 18, 2021 History & Physical Bridge Note I have examined the patient, reviewed the History & Physical and in the interval since the performance of the History & Physical I have noted the following changes of clinical significance: no changes noted
--- NOTE | 2021-09-18 07:37 | History & Physical Report ---
Date of Service September 18, 2021 Assessment & Plan (1) Neurogenic claudication due to lumbar spinal stenosis: Plan: L3 L5 revision decompression fusion History of Present Illness Chief Complaint: Back and leg pain Primary Care Provider: Suzanna Steward MD This is a 61-year-old female presents with chronic persistent back and leg pain. Failing course of nonoperative care she is here for surgical invention. Allergies Allergy/AdvReac Type Severity Reaction Status Date / Time codeine AdvReac Unknown VERY Verified 09/18/21 05:46 SLEEPY-SEDATED & syncope Home Medications Medication Instructions Recorded Confirmed Type cholecalciferol (vitamin D3) 50 2,000 unit PO QAM 12/24/18 09/18/21 History mcg (2,000 unit) capsule (Vitamin D3) melatonin 5 mg tablet 5 mg PO HS PRN 12/24/18 09/18/21 History hydroxyzine HCl 25 mg tablet 25 mg PO HS PRN #30 tab 04/25/21 09/18/21 Rx oxybutynin chloride 10 mg 10 mg PO QAM #90 tab 05/04/21 09/18/21 Rx tablet,extended release 24 hr bupropion HCl 300 mg 24 hr tablet, 300 mg PO QAM 08/02/21 09/18/21 History extended release fluoxetine 10 mg capsule 10 mg PO QAM 08/02/21 09/18/21 History fluoxetine 20 mg capsule 20 mg PO QAM 08/02/21 09/18/21 History levothyroxine 50 mcg tablet 50 mcg PO DAILY #90 tab 08/14/21 09/18/21 Rx (Synthroid) omeprazole 20 mg capsule,delayed See Rx Instructions .ROUTE 08/22/21 09/18/21 Rx release .COMPLEX #90 cap linaclotide 145 mcg capsule 145 mcg PO QAM #90 cap 08/28/21 09/18/21 Rx (Linzess) Past Med/Surg History Medical History Anxiety Bronchitis USUALLY GETS 1 X A YR-INHALER PRN No current issues Chronic idiopathic constipation Chronic sinusitis, unspecified Stable Depression GERD (gastroesophageal reflux disease) Well controlled and stable Hyperlipidemia NO MEDS Hypothyroidism Overactive bladder Suspected 2018 novel coronavirus infection 06/2020 NOT TESTED AT TIME OF SYMPTOMS-SYMPTOMS OF FATIGUE, FEVER, CHEST TIGHTNESS-RECOVERED AT HOME-SYMPTOMS RESOLVED Surgical History H/O right knee surgery (~10/2019) meniscus repair History of anesthesia reaction SLOW TO WAKE UP History of bilateral tubal ligation History of cholecystectomy History of colonoscopy 2012 History of esophagogastroduodenoscopy (EGD) History of laminectomy LUMBAR-2013 History of tooth extraction Family History Daughter Cervical cancer Metastatic Cervical Cancer Hypertension Multiple sclerosis Mother FH: colonic diverticulitis Crohn's disease Hypertension Father FH: colonic diverticulitis Crohn's disease Cancer Son Hypertension Brother Cancer Other Lung cancer Denies family history of Breast cancer Colorectal cancer Social History (Updated 08/25/21 @ 08:42 by Bernadette Diamond LPN) Smoking Status: Never smoker Second Hand Exposure: Yes (FATHER SMOKED PIPE/SPOUSE USED TO SMOKE); Do You Dip or Chew Tobacco: No; Hx Alcohol Use: Yes Alcohol type: wine Hx Substance Use: No Preferred Language: Nauruan Communication Ability: Effective Hearing Ability: Use of Hearing Aid Marine Fisheries Technician Required: No Beliefs That Will Affect Care: None Current Living Situation: Spouse current occupational status: retired Other Information That Helps Us Care for You: No Feels Safe at Home: Yes Safety Concerns: Feels Safe At This Time Childhood Exposure to Second-Hand Smoke: Yes (Father smoked pipe ) caffeine: Yes Dental Care, Regularly: Yes Assistive Devices: Glasses and Hearing Aid - Bilateral Physical Exam Physical Exam: Patient is alert and oriented Heart regular in rhythm Lungs clear Results & Data ([facility]) Vital Signs (Past 12 Hours) Vital Signs Temp Pulse Resp BP Pulse Ox 09/18/21 05:37 36.7 C 76 18 165/90 H 96
[2021-09-18] MEDS ORDERED: HYDROmorphone INJ 2 MG/ML SYR/VIAL IV PRN (07:45)
[2021-09-18] MEDS ORDERED: fentaNYL citrate 100 MCG/2 ML VIAL IV PRN (07:45)
[2021-09-18] MEDS ORDERED: ATROPINE SULFATE 0.1 MG/ML 10ML SYR IV PRN (07:45)
[2021-09-18] MEDS ORDERED: ePHEDrine sulfate 50 MG/ML AMP IV PRN (07:45)
[2021-09-18] MEDS ORDERED: PROMETHAZINE HCL 6.25 MG in SODIUM CHLORIDE 0.9% 50 ML IV PRN (07:45)
[2021-09-18] MEDS ORDERED: ONDANSETRON INJ 2 MG/ML 2 ML VIAL IV PRN ×2 (07:45→11:33)
[2021-09-18] MEDS ORDERED: ePHEDrine sulfate 50 MG/ML AMP ONE (08:31)
[2021-09-18] MEDS ORDERED: ONDANSETRON INJ 2 MG/ML 2 ML VIAL ONE (08:31)
[2021-09-18] MEDS ORDERED: DEXAMETHASONE SOD INJ 4 MG/ML VIAL ONE (08:31)
[2021-09-18] MEDS ORDERED: LIDOCAINE 2% 2 ML VIAL/AMP(20MG/ML) INFIL ONE (08:31)
[2021-09-18] MEDS ORDERED: ROCURONIUM BROMIDE 10 MG/ML 5 ML VIAL IV ONE (08:31)
[2021-09-18] MEDS ORDERED: PROPOFOL IV EMULSION 10 MG/ML 20 ML VIAL IV ONE (08:31)
[2021-09-18] MEDS ORDERED: FLOSEAL HEMOSTATIC MATRIX 10ML TOP ONE (08:40)
[2021-09-18] MEDS ORDERED: KETOROLAC 30 MG/ML VIAL ONE (09:56)
--- NOTE | 2021-09-18 10:04 | Operative Report ---
Post Operative Report Pre & Post Diagnosis Operation Date: 09/18/21 07:45 Pre-Op Diagnosis: Spinal stenosis with spondylolisthesis and neurogenic claudication Post-Op Diagnosis: Same I identified the patient and participated in the time-out.: Yes Procedure Operation Date: 09/18/21 07:45 Actual Procedures #1 revision decompression with bilateral medial facetectomies and foraminotomies L2-L3, L3-L4 and L4-5. #2 posterior spinal fusion L3-L4 L4-5. #3 placement of posterior instrumentation L3-L4 L4-5. #4 interbody fusion L3-L4 L4-5 per #5 placement of titanium cage 11 x 22 mm at L3-L4 L4-5 per #6 placement locally harvested morselized autograft in the posterior gutters. #7 placement infuse collagen sponge, master graft in the posterior lateral gutters and I factor interbody space. Surgeon Marcello Carnes, DO Meter Reader Cecilia Calderon Estimated Blood Loss 150 Findings See Below The patient is 5 foot 2 inches tall weighing 94 kg with a BMI in excess of 37. The patient's body habitus did contribute to significant technical difficulty requiring her deepest retractors longus instruments in order to perform her procedure. This at least 50% increased operative time. Specimens None Indications This is a 61-year-old female who presents above-mentioned diagnosis after failing course of nonoperative care is here for the above-mentioned procedure. Description of Procedure Patient was met with identified informed consent obtained. Patient was then taken to the operative suite underwent ablation placed in a prone position the [place] table top Tristen frame. All bony prominences well-padded eyes inspected to ensure no external pressure placed upon the. This point the lumbar spine was prepped and draped in the normal sterile fashion. Sharp dissection with the assistance of Bovie cautery was performed down to and exposing the lamina transv erse processes of L3-L4 and L5. From caudal to cephalad fashion complete revision laminectomy of L4 L3 and partial laminectomy of L2 was performed including bilateral medial facetectomies and foraminotomies addressing severe spinal stenosis. Pedicle screws were then placed in L3 L4-5 bilaterally with assistance of fluoroscopy and appropriately sized ruthy placed. By way of transfer approach and left complete discectomy of L4-L5 was performed endplates curetted to subcortical bleeding bone and a 11 x 22 mm titanium cage filled with I factor tapped in position. Then proceeded to L3-L4 and again by way of a transforaminal portion left complete discectomy performed endplates curetted to subcortical being bone and again 11 x 22 mm titanium cage filled I factor tapped in position. The rods were then compressed locked in final position bilaterally. The transverse processes of L3 L4-5 burred to subcortical bleeding bone. Infuse collagen sponge master graft local autograft was placed in the posterior gutters. 15 round NESHA drain inserted. The incision was then closed with 1 Vicryl the fascia 2-0 Vicryl subcutaneously and 4 Monocryl for final skin closure. Steri-Strip sterile dressings placed. Patient will continue PACU stable condition. Please note spinal cord monitoring was utilized at the procedure no changes noted. Lastly Cecilia Calderon was present at the entire surgery involved patient positioning complex portions of the surgery and final skin closure. I attest to the content of the Intraoperative Record and any orders documented therein. Any exceptions are noted below.
--- NOTE | 2021-09-18 10:23 | Fluoroscopy Report ---
FL lumbar spine 2-3V CLINICAL HISTORY: L3-L5 discectomy and fusion COMPARISON STUDY: None. FLUOROSCOPY TIME: 23 seconds. FINDINGS: 2 fluoroscopic spot images of the lower lumbar spine demonstrate posterior decompression an d fusion from L3 through L5 with pedicle screws and rods. Disc spacers are in place. The hardware ting ears intact. IMPRESSION: Fluoroscopic assistance provided for L3-L5 posterior decompression and fusion ACT 112: Negative or not required by law. Electronically signed by: Sal Damian M.D. 09/18/2021 10:22 AM
[2021-09-18] MEDS ORDERED: traMADol HCL 50 MG TABLET PO PRN (11:33)
[2021-09-18] MEDS ORDERED: FAMOTIDINE 20 MG TAB PO PRN (11:33)
[2021-09-18] MEDS ORDERED: HYDROmorphone INJ 1 MG/ML SYRINGE IV PRN (11:33)
[2021-09-18] MEDS ORDERED: MAGNESIUM HYDROXIDE SUSP 30 ML UDC PO PRN (11:33)
[2021-09-18] MEDS ORDERED: diphenhydrAMINE Capsule 25 MG CAP PO PRN (11:33)
[2021-09-18] MEDS ORDERED: SOD PHOSPHATE/SOD BIPHOSPHATE ENEMA 132 ML BTL PR PRN (11:33)
[2021-09-18] MEDS ORDERED: LORazepam 0.5 MG TAB PO PRN (11:33)
[2021-09-18] MEDS ORDERED: ALUMINUM/MAGNESIUM SUSP 30 ML UDC PO PRN (11:33)
[2021-09-18] MEDS ORDERED: HYDROmorphone INJ 0.5 MG/0.5 ML SYR IV PRN (11:33)
[2021-09-18] MEDS ORDERED: hydrOXYzine HCl 25 MG TAB PO PRN (11:33)
[2021-09-18] MEDS ORDERED: ACETAMINOPHEN 1,000 MG/100 ML VIAL IV PRN (11:33)
[2021-09-18] MEDS ORDERED: ACETAMINOPHEN 500 MG TAB PO PRN (11:33)
[2021-09-18] MEDS ORDERED: bisacodyL 10 MG SUPP PR PRN (11:33)
[2021-09-18] MEDS ORDERED: DO NOT ADMINISTER PNEUMOCOCCAL VACCINE PRN (11:33)
[2021-09-18] MEDS ORDERED: PROMETHAZINE HCL 12.5 MG in SODIUM CHLORIDE 0.9% 50 ML IV PRN (11:33)
[2021-09-18] MEDS ORDERED: DO NOT ADMINISTER FLU VACCINE PRN (11:33)
[2021-09-18] MEDS ORDERED: METOCLOPRAMIDE HCL INJ 5 MG/ML 2 ML VIAL IV PRN (11:33)
[2021-09-18] MEDS ORDERED: NALOXONE HCL 0.4 MG/1 ML VIAL/CARP IV PRN (11:33)
[2021-09-18] MEDS ORDERED: ONDANSETRON 4 MG OD TAB PO PRN (11:33)
[2021-09-18] MEDS ORDERED: LORazepam 0.5 MG/1 ML VIAL IV PRN (11:33)
[2021-09-18] MEDS ORDERED: MELATONIN 3 MG TAB PO PRN (11:45)
--- NOTE | 2021-09-18 12:12 | Anesthesiology Progress Note ---
Date of Service September 18, 2021 Anesthesia Post Procedure Vital Signs Vital Signs: Temp Pulse Pulse Resp BP Pulse Ox 09/18/21 12:03 36.3 C L 83 16 100/67 96 09/18/21 11:30 36.8 C 81 16 118/75 97 09/18/21 11:10 81 14 121/77 93 09/18/21 10:55 36.5 C 80 17 138/84 93 09/18/21 10:45 80 10 L 155/72 H 94 09/18/21 10:35 80 17 146/77 H 94 09/18/21 10:25 79 10 L 134/74 94 09/18/21 10:15 36.3 C L 77 14 125/66 94 09/18/21 05:37 36.7 C 76 18 165/90 H 96 Pain Intensity Lower Back: Pain Intensity: 0 Transfer of Care Handoff Completed per policy Notes Mental Status: alert / awake / arousable Patient Amnestic to Procedure: Yes Nausea / Vomiting: adequately controlled Pain: adequately controlled Airway Patency, RR, SpO2: stable & adequate BP & HR: stable & adequate Hydration State: stable & adequate Anesthetic Complications: no major complications apparent
[2021-09-18] MEDS ORDERED: FLUARIX QUADRIVALENT 0.5 ML SYR IM ONE (12:13)
[2021-09-18] MEDS: SODIUM CHLORIDE 0.9% 1000ML 1,000 ML IV SCH ×2 (12:15→22:27)
--- NOTE | 2021-09-18 13:13 | Consultation ---
Date of Consultation September 18, 2021 Assessment & Plan (1) Lumbar disc disease: s/p lumbar decompression-fusion procedure today by Dr Carnes. Decompression at L2-L3, L3-L4, and L4-L5. Fusion at L3-L4 and L4-L5. Resting comfortably post-op. Defer pain management, IV fluids, and disposition to orthopedics. (2) Neurogenic claudication due to lumbar spinal stenosis: see #1 above (3) Chronic idiopathic constipation: Continue linzess. She may need additional agents - miralax, etc. (4) Hypothyroidism: TSH 2.2 -- 04/2021. Continue synthroid. (5) GERD (gastroesophageal reflux disease): Added protonix 40mg once daily starting today. (6) Anxiety: Cont Fluoxetine. (7) Depression: Cont Fluoxetine. Cont wellbutrin. (8) DVT prophylaxis: SCDs for now as per orthopedics. Thank you for this consult. We will follow with you. Labs for am ordered. History of Present Illness Requesting Physician: Joaquin Carnes DO Reason for Consultation: post-op medical management Attending Physician: Marcello Carnes DO History of Present Illness Pleasant 61yo female with history of hypothyroidism, anxiety/depression, and GERD presented today for elective lumbar back surgery. She has had several months of progressive lumbar back pain with radicular symptoms of both legs, mainly on the left, with throbbing/shooting pain travelin g down the side of the leg to the left knee. I saw her post-op on the orthopedic floor and she was eating lunch without difficulty. Denied any perioperative chest pain, dyspnea, abdominal pain, nausea or emesis. Prior to her surgery she otherwise had been feeling well of late. During her surgery today she underwent the following - #1 revision decompression with bilateral medial facetectomies and foraminotomies L2-L3, L3-L4 and L4-5. #2 posterior spinal fusion L3-L4 L4-5. #3 placement of posterior instrumentation L3-L4 L4-5. #4 interbody fusion L3-L4 L4-5 per #5 placement of titanium cage 11 x 22 mm at L3-L4 L4-5 per #6 placement locally harvested morselized autograft in the posterior gutters. Allergies Allergy/AdvReac Type Severity Reaction Status Date / Time codeine AdvReac Unknown VERY Verified 09/18/21 05:46 SLEEPY-SEDATED & syncope Home Medications Medication Instructions Recorded Confirmed Type cholecalciferol (vitamin D3) 50 2,000 unit PO QAM 12/24/18 09/18/21 History mcg (2,000 unit) capsule (Vitamin D3) melatonin 5 mg tablet 5 mg PO HS PRN 12/24/18 09/18/21 History hydroxyzine HCl 25 mg tablet 25 mg PO HS PRN #30 tab 04/25/21 09/18/21 Rx oxybutynin chloride 10 mg 10 mg PO QAM #90 tab 05/04/21 09/18/21 Rx tablet,extended release 24 hr bupropion HCl 300 mg 24 hr tablet, 300 mg PO QAM 08/02/21 09/18/21 History extended release fluoxetine 10 mg capsule 10 mg PO QAM 08/02/21 09/18/21 History fluoxetine 20 mg capsule 20 mg PO QAM 08/02/21 09/18/21 History levothyroxine 50 mcg tablet 50 mcg PO DAILY #90 tab 08/14/21 09/18/21 Rx (Synthroid) omeprazole 20 mg capsule,delayed See Rx Instructions .ROUTE 08/22/21 09/18/21 Rx release .COMPLEX #90 cap linaclotide 145 mcg capsule 145 mcg PO QAM #90 cap 08/28/21 09/18/21 Rx (Linzess) Patient History Medical History Anxiety Bronchitis USUALLY GETS 1 X A YR-INHALER PRN No current issues Chronic idiopathic constipation Chronic sinusitis, unspecified Stable Depression GERD (gastroesophageal reflux disease) Well controlled and stable Hyperlipidemia NO MEDS Hypothyroidism Overactive bladder Suspected 2018 novel coronavirus infection 06/2020 NOT TESTED AT TIME OF SYMPTOMS-SYMPTOMS OF FATIGUE, FEVER, CHEST TIGHTNESS-RECOVERED AT HOME-SYMPTOMS RESOLVED Surgical History H/O right knee surgery (~10/2019) meniscus repair History of anesthesia reaction SLOW TO WAKE UP History of bilateral tubal ligation History of cholecystectomy History of colonoscopy 2012 History of esophagogastroduodenoscopy (EGD) History of laminectomy LUMBAR-2012 History of tooth extraction Family History Daughter Cervical cancer Metastatic Cervical Cancer Hypertension Multiple sclerosis Mother FH: colonic diverticulitis Hypertension Father , 2nd lung cancer FH: colonic diverticulitis Cancer Son Hypertension Brother Cancer Other Lung cancer Denies family history of Breast cancer Colorectal cancer Social History (Updated 09/18/21 @ 13:09 by Eric Pandey) Smoking Status: Never smoker Second Hand Exposure: Yes (FATHER SMOKED PIPE/SPOUSE USED TO SMOKE); Do You Dip or Chew Tobacco: No; Hx Alcohol Use: Yes Alcohol type: wine Hx Substance Use: No Preferred Language: Arabic Communication Ability: Effective Hearing Ability: Use of Hearing Aid Machine Sweeper Brush Maker Required: No Beliefs That Will Affect Care: None marital status: Current Living Situation: Spouse Current Living Situation Comment: lives in [place] current occupational status: retired current occupation: HR work at [employer] How many Children do You have: 1 Other Information That Helps Us Care for You: No Feels Safe at Home: Yes Safety Concerns: Feels Safe At This Time Childhood Exposure to Second-Hand Smoke: Yes (Father smoked pipe ) caffeine: Yes Dental Care, Regularly: Yes Assistive Devices: Glasses and Hearing Aid - Bilateral Review of Systems Review of Systems: Gen - no fevers, chills, loss of appetite or weight loss Eyes - no visual changes HENT - no loss of taste/smell; no dysphagia Neck - no pain CV - no chest pain Pulm - no cough or dyspnea/SMITH GI - no N/V/D/abd pain; suffers from chronic constipation - no dysuria musculo - denies other locations of chronic pain except her lumbar spine skin - no rash endo - denied diabetes neuro - denies focal motor weakness of legs despite her radicular pain lymph - no lymph nodes in any location Physical Exam Physical Exam: gen - NAD, pleasant eyes - PERRL HENT - MMM, no lesions; nose clear neck - no JVD, no thyroidmegaly CV - RRR, s1 s2, no murmur lungs - cta b/l abd - soft NT ND BS+; no HSM ext - no edema, pulses 2+ b/l neuro - strength 5/5 x 4 exts psych - a/o x 3 skin - no rash lymph - no cervical lymph nodes b/l Results & Data ([facility]) Vital Signs (Past 12 Hours) Vital Signs Temp Pulse Pulse Resp BP Pulse Ox 09/18/21 12:30 36.8 C 85 18 108/70 97 09/18/21 12:03 36.3 C L 83 16 100/67 96 09/18/21 11:30 36.8 C 81 16 118/75 97 09/18/21 11:10 81 14 121/77 93 09/18/21 10:55 36.5 C 80 17 138/84 93 09/18/21 10:45 80 10 L 155/72 H 94 09/18/21 10:35 80 17 146/77 H 94 09/18/21 10:25 79 10 L 134/74 94 09/18/21 10:15 36.3 C L 77 14 125/66 94 09/18/21 05:37 36.7 C 76 18 165/90 H 96 Laboratory Results Labs 09/18/21 09/18/21 05:25 05:33 SARS-CoV-2, RNA, NAAT NEGATIVE Blood Type A Positive Antibody Screen NEGATIVE PG Care Time/CCT Total # of Minutes Spent Total Time Spent with Patient: Total time spent is greater than 50% in coordination of care (as documented) at patient's floor/unit and/or counseling patient: Coding Level of Care Code 83645 Inpt Consult Level 2 Diagnoses Lumbar disc disease M51.9 Neurogenic claudication due to lumbar spinal stenosis M48.062 Chronic idiopathic constipation K59.04 Hypothyroidism E03.9 GERD (gastroesophageal reflux disease) K21.9 Anxiety F41.9 Depression F32.9 DVT prophylaxis Z29.9
[2021-09-18] MEDS: PANTOprazole 40 MG TAB PO SCH (13:53)
[2021-09-18] MEDS: oxyCODONE HCL IR 5 MG TAB (IMMEDIATE RELEASE) PO PRN ×2 (16:56→22:27)
[2021-09-18] MEDS: ceFAZolin 2000MG 2,000 MG/15 ML SYR IV SCH (16:57)
[2021-09-18] MEDS: DOCUSATE SODIUM/SENNA 50/8.6MG TAB PO SCH (19:30)
[2021-09-18] MEDS: hydrOXYzine HCl 25 MG TAB PO PRN (22:27)
[2021-09-19] MEDS: ceFAZolin 2000MG 2,000 MG/15 ML SYR IV SCH (00:20)
[2021-09-19] MEDS: POLYETHYLENE (MIRALAX) 17 GM PACK PO SCH ×3 (05:20→17:30)
[2021-09-19] MEDS: LEVOTHYROXINE SODIUM 50 MCG TABLET PO SCH (05:20)
[2021-09-19 07:55] LABS: Basophils # (auto) 0.01 K/uL (0-0.2); Basophils % (auto) 0.1 %; Eosinophils # (auto) 0.02 K/uL (0-0.5); Eosinophils % (auto) 0.2 %; Hematocrit (blood only) 34.7 % (37-47); Hemoglobin 11.5 g/dL (12.0-16.0); Immature Granulocytes # (auto) 0.01 K/uL (0.00-0.02); Immature Granulocytes % (auto) 0.1 %; Lymphocytes # (auto) 1.43 K/uL (1.2-3.4); Lymphocytes % (auto) 11.8 %; Mean Corpuscular Hgb Conc 33.1 g/dL (32-36); Mean Corpuscular Volume 93.5 fL (80-100); Mean Platelet Volume 9.6 fL (7.4-10.4); Monocytes # (auto) 1.41 K/uL (0.11-0.59); Monocytes % (auto) 11.6 %; Neutrophils # (auto) 9.26 K/uL (1.4-6.5); Neutrophils % (auto) 76.2 %; Platelet Count 266 K/uL (130-400); RDW Coefficient of Variation 14.2 % (11.5-14.5); RDW Standard Deviation 48.5 fL (36.4-46.3); Red Blood Count 3.71 M/uL (4.2-5.4); White Blood Count 12.14 K/uL (4.8-10.8)
[2021-09-19 08:33] LABS: BUN Creatinine Ratio 19.1 (10-20); Calcium 7.9 mg/dl (8.5-10.1); Creatinine Clr Calc Pharmacy 69.1 ml/min; Est GFR (African American) 79.9 ml/min; Magnesium 1.6 mg/dl (1.7-2.4); Potassium 3.7 mmol/L (3.5-5.1)
[2021-09-19] MEDS: PANTOprazole 40 MG TAB PO SCH (09:17)
[2021-09-19] MEDS: CHOLECALCIFEROL 1,000 UNITS 25 MCG TAB PO SCH (09:18)
[2021-09-19] MEDS: FLUoxetine HCL 10 MG CAP PO SCH (09:18)
[2021-09-19] MEDS: buPROPion XL 300 MG TABCR PO SCH (09:18)
[2021-09-19] MEDS: OXYBUTYNIN CHLORIDE XL 5 MG TABCR PO SCH (09:18)
[2021-09-19] MEDS: FLUoxetine HCL 20 MG CAP PO SCH (09:18)
[2021-09-19] MEDS: LINACLOTIDE 145 MCG CAPSULE PO SCH (09:18)
[2021-09-19] MEDS: dexAMETHasone 6 MG in SYRINGE 0 ML IV SCH (09:19)
[2021-09-19] MEDS: oxyCODONE HCL IR 5 MG TAB (IMMEDIATE RELEASE) PO PRN ×2 (09:22→20:45)
--- NOTE | 2021-09-19 10:12 | Orthopedic Progress Note ---
Date of Service September 19, 2021 Assessment & Plan (1) Neurogenic claudication due to lumbar spinal stenosis: Plan: At this time continue physical therapy monitor NESHA operatively discharge home in next few days. Admission and Anticipated Discharge Date Admission Date: September 18, 2021 Subjective Back pain controlled leg pain markedly improved Physical Exam Physical Exam: Patient has good strength testing appears comfortable. Results & Data ([facility]) Vital Signs (Past 12 Hours) Vital Signs Temp Pulse Pulse Resp BP Pulse Ox 09/19/21 08:03 36.7 C 85 18 101/62 93 09/19/21 02:40 36.7 C 84 16 109/72 93 09/18/21 23:04 36.7 C 83 18 128/83 96
--- NOTE | 2021-09-19 11:31 | Hospitalist Progress Note ---
Date of Service September 19, 2021 Assessment & Plan (1) Lumbar disc disease: Plan: * s/p lumbar decompression-fusion (L3-L5) Dr Carnes- POD#1 * Currently, her pain is adequately controlled and she is tolerating her pain medication. Postoperative pain management at discretion of primary team * Recommend continued incentive spirometry, PT/OT, and DVT prophylaxisat discr etion of primary team (2) Neurogenic claudication due to lumbar spinal stenosis: Plan: * see above (3) Hypomagnesemia: Plan: * IV magnesium sulfate today with oral supplementation starting tomorrow. Would advise daily supplementation X 14 days or longer at discretion of PCP * Rx placed in discharge work (4) Chronic idiopathic constipation: Plan: * Continue Linzess as prior to hospitalization * Patient has been started on a bowel regimen postoperatively which includes MiraLAX and Senokot * Magnesium supplementation will also help with this (5) Hypothyroidism: Plan: * TSH 2.2 -- 04/2021. * Continue synthroid. (6) GERD (gastroesophageal reflux disease): Plan: * Protonix added for GI prophylaxis (7) Anxiety: Plan: * Cont Fluoxetine. (8) Depression: Plan: * Cont Fluoxetine. * Cont wellbutrin. (9) DVT prophylaxis: Plan: SCDs for now as per orthopedics. Plan: Plan of care will be discussed with Dr. Henao Patient is medically and hemodynamically stable We will sign off from a medical standpoint but do not hesitate to reconsult should a problem arise. Thank you for allowing us to participate in the care of this patient. Admission and Anticipated Discharge Date Admission Date: September 18, 2021 Subjective Patient seen on daily rounds today. Is POD #1 s/p lumbar decompression with fusion. Still having significant pain in her low back but is controlled with pain medication. Tolerating her pain medication without ill effects. Denies fevers, chills, chest pain, shortness of breath, abdominal pain, nausea or vomiting. Review of Systems Review of Systems: All systems reviewed and are unremarkable except as noted in HPI and below Denies fevers, chills, headache, nasal congestion, sore throat, cough, chest pain, shortness of breath, palpitations, orthopnea, PND, abdominal pain, nausea, vomiting, diarrhea, constipation, dysuria, hematuria, frequency, joint pain or swelling, easy bruising or bleeding, skin lesions or rashes. Physical Exam Physical Exam: General: Resting comfortably in her hospital bed. She does not appear ill or toxic. NAD. HEENT: Head is AT/NC buccal mucosa is moist and pink Neck: No JVD. Negative hepatojugular reflex Cardiac: RRR without M/G/R Lungs: CTA without W/R/R Abdomen: Normoactive X4. Soft and nontender in all quadrants. Extremities: No peripheral clubbing cyanosis or edema. Low back with surgical dressing that is dry and intact. Indwelling NESHA drain noted. Neuro: A&O X4 cranial nerves II through XII are grossly intact no focal neuro deficits Skin: No obvious skin lesions or rashes Psych: Appropriate affect pleasant and cooperative Results & Data Results & Data ([facility]) Vital Signs (Past 12 Hours) Vital Signs Temp Pulse Pulse Resp BP Pulse Ox 09/19/21 08:03 36.7 C 85 18 101/62 93 09/19/21 02:40 36.7 C 84 16 109/72 93 Laboratory Results 09/19/21 07:28 09/19/21 07:28 Magnesium 1.6 PG Care Time/CCT Total # of Minutes Spent Total Time Spent with Patient: Total time spent is greater than 50% in coordination of care (as documented) at patient's floor/unit and/or counseling patient: Coding Level of Care Code 77445 Inpt Consult Level 3 Diagnoses Lumbar disc disease M51.9 Neurogenic claudication due to lumbar spinal stenosis M48.062 Chronic idiopathic constipation K59.04 Hypothyroidism E03.9 GERD (gastroesophageal reflux disease) K21.9 Anxiety F41.9 Depression F32.9 DVT prophylaxis Z29.9 Hypomagnesemia E83.42
[2021-09-19] MEDS ORDERED: MAGNESIUM SULFATE / D5W 1 GM/100 ML BAG IV ONE (12:15)
[2021-09-19] MEDS: DOCUSATE SODIUM/SENNA 50/8.6MG TAB PO SCH (20:43)
[2021-09-20] MEDS: LEVOTHYROXINE SODIUM 50 MCG TABLET PO SCH (06:00)
--- NOTE | 2021-09-20 08:35 | Orthopedic Progress Note ---
Date of Service September 20, 2021 Assessment & Plan (1) Neurogenic claudication due to lumbar spinal stenosis: Plan: Patient is doing well postoperative day 2 from posterior lumbar decompression and instrumented fusion. We will continue with physical therapy. Maintain NESHA drain. DVT prophylaxis is in the form of teds and SCDs. Continue with pain control. Anticipate discharge home tomorrow Admission and Anticipated Discharge Date Admission Date: September 18, 2021 Jaycee Patino is postoperative day 2 lumbar decompression and instrumented fusion. She is doing great. Leg symptoms greatly improved. She is had a bowel movement. Yesterday in physical therapy she is ambling roughly 285 feet plus the hallways on the floor. NESHA drain output last shift was 40 cc. No other complaints. Review of Systems Review of Systems: All systems reviewed & are unremarkable except as noted in HPI & below Physical Exam Physical Exam: He is alert and oriented x3 Acute distress calves soft nontender bilateral lower extremities Strength is intact bilateral lower extremities Her dressing is clean dry and intact with functioning NESHA drain Results & Data ([facility]) Vital Signs (Past 12 Hours) Vital Signs Temp Pulse Resp BP Pulse Ox 09/20/21 07:18 36.8 C 80 18 108/72 91 09/19/21 23:24 37 C 91 H 18 103/63 91
[2021-09-20] MEDS: FLUoxetine HCL 10 MG CAP PO SCH (09:10)
[2021-09-20] MEDS: MAGNESIUM OXIDE 400 MG TAB PO SCH (09:11)
[2021-09-20] MEDS: LINACLOTIDE 145 MCG CAPSULE PO SCH (09:11)
[2021-09-20] MEDS: FLUoxetine HCL 20 MG CAP PO SCH (09:11)
[2021-09-20] MEDS: CHOLECALCIFEROL 1,000 UNITS 25 MCG TAB PO SCH (09:11)
[2021-09-20] MEDS: OXYBUTYNIN CHLORIDE XL 5 MG TABCR PO SCH (09:11)
[2021-09-20] MEDS: dexAMETHasone 6 MG in SYRINGE 0 ML IV SCH (09:12)
[2021-09-20] MEDS: buPROPion XL 300 MG TABCR PO SCH (09:12)
[2021-09-20] MEDS: PANTOprazole 40 MG TAB PO SCH (09:12)
[2021-09-20] MEDS: oxyCODONE HCL IR 5 MG TAB (IMMEDIATE RELEASE) PO PRN ×3 (09:14→21:46)
[2021-09-20] MEDS: DOCUSATE SODIUM/SENNA 50/8.6MG TAB PO SCH (21:42)
[2021-09-20] MEDS: hydrOXYzine HCl 25 MG TAB PO PRN (22:57)
[2021-09-21] MEDS: LEVOTHYROXINE SODIUM 50 MCG TABLET PO SCH (05:35)
[2021-09-21] MEDS: oxyCODONE HCL IR 5 MG TAB (IMMEDIATE RELEASE) PO PRN ×2 (08:46→14:11)
[2021-09-21] MEDS: MAGNESIUM OXIDE 400 MG TAB PO SCH (08:47)
[2021-09-21] MEDS: OXYBUTYNIN CHLORIDE XL 5 MG TABCR PO SCH (08:47)
[2021-09-21] MEDS: dexAMETHasone 6 MG in SYRINGE 0 ML IV SCH (08:48)
[2021-09-21] MEDS: FLUoxetine HCL 20 MG CAP PO SCH (08:48)
[2021-09-21] MEDS: FLUoxetine HCL 10 MG CAP PO SCH (08:48)
[2021-09-21] MEDS: PANTOprazole 40 MG TAB PO SCH (08:48)
[2021-09-21] MEDS: CHOLECALCIFEROL 1,000 UNITS 25 MCG TAB PO SCH (08:48)
[2021-09-21] MEDS: LINACLOTIDE 145 MCG CAPSULE PO SCH (08:48)
[2021-09-21] MEDS: buPROPion XL 300 MG TABCR PO SCH (08:48)
--- NOTE | 2021-09-21 11:31 | Discharge Summary ---
Date of Service September 21, 2021 Admission HPI Per Admitting Provider This is a 61-year-old female presents with chronic persistent back and leg pain. Failing course of nonoperative care she is here for surgical invention. Principal Diagnosis Lumbar spinal stenosis with neurogenic claudication Discharge Data Allergies Allergy/AdvReac Type Severity Reaction Status Date / Time codeine AdvReac Unknown VERY Verified 09/18/21 05:46 SLEEPY-SEDATED & syncope Consultations 09/18/21 11:33 Consult Hospitalist Routine Procedures Performed Operation Date: 09/18/21 07:45 Actual Procedures p L3-L5 Revision Decompression and Fusion, Spinal Cord Monitoring(Not Applicable) - Marcello Carnes DO Ordered Studies 09/18/21 07:45 FL lumbar spine 2-3V Routine Hospital Course (1) Neurogenic claudication due to lumbar spinal stenosis: Patient 1 multilevel lumbar depression fusion tolerates well second orthopedic for postop probably. Postop day 1 she was up and ambulating progressed to postop day #2 postop day #3 she is excellent strength testing NESHA henry rain decreasing probably. Pain well controlled. Subsequent discharge home. Discharge orders and instructions found in chart for further review. Total Time Total Time Spent Total Time Spent (In Minutes): 20 minutes Discharge Plan Discharge Items Patient Disposition: Home - Self-Care Reason For Visit: Radiculopathy, Lumbar Region Discharge Diagnosis: Lumbar spinal stenosis with radiculopathy and spondylolisthesis Activity: As commented below Non-emergency contact: Primary Care Provider Call non-emergency contact if: you have any medication questions Follow-up/Referrals: Suzanna Steward MD [Primary Care Provider] - Diet: Regular Addtl Attending Provider Instructions: ACTIVITY RECOMMENDATIONS: SELF CARE INSTRUCTIONS AFTER THORACIC/LUMBAR FUSIONS 1. You may walk to your tolerance. It is good exercise for your legs and back. Expect some back and intermittent leg aches and pains. 2. You may perform "counter-top" level activities (make a sandwich, maggy with a project, etc.). 3. No bending or lifting of more than 10 pounds or back twisting of any nature (roll like a log when turning in bed). 4. You may ride in a car for 20-30 minutes at a time. No driving until after your first visit with your doctor. 5. Frequent changes of position and restricting sitting to 30 minutes at a time will help limit the amount of back spasms and stiffness you may experience. 6. You may discontinue the use of ambulatory aids (cane, crutches, etc.) once your strength and confidence allow. 7. You may environmental sampling technician the shower and let water strike your incision when you arrive home at least once daily. Do not take a tub bath, sit in a hot tub or go into a swimming pool until after your first recheck in the office. SPECIAL CARE INSTRUCTIONS: VERY IMPORTANT TO READ AND REVIEW A. Your surgical incision has been closed with a cosmetic suture under the skin that will dissolve in about 6 weeks. In 14 days, you can use a pair of clean scissors and cut the suture that is left outside of the skin at the ends of your incision. 1. The small skin tapes can be removed 7 days after surgery if they have not fallen off by that point. 2. You may keep the wound open to air as much as possible to promote healing after post-op day number 5 unless told otherwise by your doctor. 3. If you think the wound looks like it is becoming infected (redness or worsening drainage) and/or you are experiencing fever, chill or worsening back pain and muscle spasms, contact the office so that we may evaluate you as soon as possible. B. Complications are uncommon, but please contact us if you have any signs or symptoms of: 1. wound infection (fever higher than 102.5 degrees F, redness, separation of wound, drainage, or increasing pain from the incision) 2. blood clots in legs (pain, swelling, redness and warmth in legs) 3. urinary tract infection (fever higher than 102.5 degrees F, burning upon urination or increased frequency of urination) 4. nerve problems (inability to walk on your toes or heels, numbness, loss of bowel or bladder control) 5. any other symptoms that concern you C. Please call the office at if you have any concerns or questions about your operation or recovery. D. No smoking! Smoking drastically decreases the chance of a solid fusion. E. Do not take any anti-inflammatory medications (Indocin, Advil, Motrin, Aspirin, Naprosyn, etc.) as these may inhibit the chance of a solid fusion. Tylenol is okay to take for pain. MANAGING PAIN AFTER SPINAL SURGERY 1. Narcotic medication is intended for short-term use and will be provided for surgical pain. Surgical pain usually lasts for a period of 4-6 weeks. Narcotic medication includes Percocet, Vicodin, Darvocet, Tylenol #3 or Lortab. 2. Longer-term pain is more appropriately treated with non-narcotic medication such as Tylenol ES. 3. Muscle spasm is not appropriately treated with narcotics. Muscle relaxers such as Soma, Flexeril or Skelaxin can be used along with Tylenol ES. 4. Remember that we all live with some "aches and pains". This is not unusual or uncommon after an injury or as we get older. a. Back pain is expected and may include muscle spasms for 4 to 6 weeks after surgery. The pain should gradually improve. If the pain worsens for no apparent reason, please contact the office. b. Intermittent leg pain may also be experienced and should not be concerned about unless it worsens for no apparent reason. If so, please contact the office. 5. We will provide appropriate medication within the normal guidelines of their prescribed use. We will also be very cautious and aware of potential abuse and extended duration of patients' medication needs. a. Pain medications are for your comfort and to assist with sleep and rest so that the tissue can heal. They are not provided in order to return to normal activity and should not be used through the day. To do so or worsening pain at night can result from ongoing tissue damage and development of tolerance to the prescribed medicine. 6. Please allow 2-3 days to process refills. Prescriptions will not be mailed but must be picked up at the office. FOLLOW UP VISIT: Keep your scheduled follow-up appointment. Any questions, please call the office at . Addtl Motorized Squad Sergeant Provider Instructions: -Magnesium level low for which IV magnesium was initiated and oral supplementation started -Would advise continued magnesium supplementation X 14 to 30 days or further at discretion of PCP -Magnesium may cause loose stools (which for you may be beneficial given your underlying chronic constipation). If you develop loose stools, would advise stopping/holding the Senokot and MiraLAX Pending Studies at Discharge: No Stand-Alone Forms: My [employer], Smoking Cessation Medications and DC Order Prescriptions: New tramadol 50 mg tablet 50 mg PO Q6H PRN (Reason: pain, moderate) Qty: 30 RF: 0 oxycodone 5 mg tablet 5 mg PO Q6H PRN (Reason: pain, severe) Qty: 30 RF: 0 magnesium oxide 400 mg magnesium tablet 400 mg PO DAILY Qty: 30 RF: 0 Continued oxybutynin chloride 10 mg tablet extended release 24hr 10 mg PO QAM Qty: 90 RF: 3 levothyroxine [Synthroid] 50 mcg tablet 50 mcg PO DAILY Qty: 90 RF: 3 omeprazole 20 mg capsule,delayed release(DR/EC) See Rx Instructions .ROUTE .COMPLEX Qty: 90 RF: 3 Linzess 145 mcg capsule 145 mcg PO QAM Qty: 90 RF: 3 hydroxyzine HCl 25 mg tablet 25 mg PO HS PRN (Reason: sleep) Qty: 30 RF: 2 melatonin 5 mg Tablet 5 mg PO HS PRN (Reason: Sleep) RF: 0 cholecalciferol (vitamin D3) [Vitamin D3] 2,000 unit Capsule 2,000 unit PO QAM RF: 0 fluoxetine 10 mg capsule 10 mg PO QAM RF: 0 fluoxetine 20 mg capsule 20 mg PO QAM RF: 0 bupropion HCl 300 mg tablet extended release 24 hr 300 mg PO QAM RF: 0 Discharge Orders: Discharge Order (Routine); Ordered 09/21/21 Ordered By: Marcello Carnes Admission Data Admit Date/Time: 09/18/21 10:09 Attending Provider: Marcello Carnes Admit Provider: Marcello Carnes Primary Care Provider: Suzanna Steward Other Providers: [place]
== END 2021-09-21 15:36 | disposition home or self-care (01) | DRG 455 ==
LOC: ASU 05:15 → 3E 10:09